=== PATIENT | female | born 1990 ===

== ENCOUNTER 2016-09-23 18:31 | Emergency (ER) | payer OTHER ==
[~2016-09-23] VITALS: Ht 167.6 cm; Wt 68.0 kg
[~2016-09-23 18:31] MED LIST: CETIRIZINE HYDR10 MG PO; DEPAKOTE500 MG PO; HYDROCORTISONE11 TOP; HYDROXYZINE50 M1 PO; NASACORT A55 MCG/Act; PROZAC40 MG PO; ZYPREXA20 MG PO
[2016-09-23 18:58] LABS: BASOPHIL % 0.6 % (0-2); PLATELET COUNT 218 x10^3mcL (130-400)
[2016-09-23 19:10] LABS: CALCIUM 8.8 mg/dL (8.5-10.1); CARBON DIOXIDE 24.1 mmol/L (21-32); CHLORIDE SERUM 104 mmol/L (98-107); GFR1 > 60 mL/min; GLUCOSE SERUM 76 mg/dL (74-106); POTASSIUM SERUM 3.6 mmol/L (3.5-5.1); SODIUM SERUM 142 mmol/L (136-145)
[2016-09-23 19:14] LABS: AMPHETAMINE QUAL UR NONE DETECTED (NEG <=1000)
[2016-09-23 19:14] LABS: ALBUMIN 4.1 g/dL (3.4-5.0); ALKALINE PHOSPHATASE 60 U/L (46-116); ALT/SGPT 33 U/L (14-59); AST/SGOT 36 U/L (15-37); BILIRUBIN TOTAL 0.15 mg/dL (0.20-1.00); CHOLESTEROL 142 mg/dL (<200); TOTAL PROTEIN, SERUM 7.4 g/dL (6.4-8.2)
[2016-09-23 21:49] VITALS: BP 102/57
== END 2016-09-23 22:12 | disposition short-term general hospital (02) ==
LOC: ED 18:31
PROVIDERS: Emergency Medicine
DX: G40.909 Epilepsy, unspecified, not intractable, without status epilepticus (principal); R40.4 Transient alteration of awareness
CPT/HCPCS: 83880; G0480; J1885; Q0092